=== PATIENT | female | born 1950 | race Caucasian/White ===

== ENCOUNTER 2017-01-22 16:27 | Emergency (ER) | payer OTHER ==
[2017-01-22 16:29] VITALS: BP 144/64; PULSE 62; RESP 20; TEMP 98; O2SAT 96
[2017-01-22 17:09] VITALS: PULSE 58; RESP 18; TEMP 98.9; O2SAT 97
[2017-01-22] MEDS ORDERED: PROC10TA PO (17:18)
[2017-01-22] MEDS ORDERED: LORA-373 PO (17:18)
[2017-01-22] MEDS ORDERED: BYST5TAB2 PO (17:18)
[2017-01-22] MEDS ORDERED: PRAV20TA2 PO (17:18)
[2017-01-22] MEDS ORDERED: MORP1SOL3 PO (17:18)
[2017-01-22] MEDS ORDERED: LEVO88TA2 PO (17:18)
[2017-01-22] MEDS ORDERED: SODIUM CHLOR 0.9% 1000 ML INJ 1,000 ML IV SCH (17:34)
[2017-01-22] MEDS ORDERED: ONDANSETRON HCL 4 MG/2 ML VIAL IVP ONE (17:45)
[2017-01-22] MEDS ORDERED: ALUMINUM/MAGNESIUM/SIMETH 30 ML CUP PO ONE (17:45)
[2017-01-22] MEDS ORDERED: LORazepam 2 MG/ML VIAL IV PUSH ONE (17:45)
[2017-01-22] MEDS ORDERED: LIDOCAINE VISCOUS 2% SOLN 15 ML UDC PO ONE (17:45)
--- NOTE | 2017-01-22 17:48 | PD ---
HPI Chief Complaint: GI Complaint Time Seen by Provider: 17:30 Travel History International Travel<30 days: No Contact w/Intl Traveler<30days: No Traveled to known affect area: No History of Present Illness HPI This is a 66-year-old female with history of esophageal adenocarcinoma who presents for evaluation. She reports that for the past 4 months she has had decreased appetite, inability to swallow solid foods, 40 pound weight loss. She primarily sticks to a liquid diet. She was found to have esophageal adenocarcinoma. She has been referred to radiation oncology, saw Dr. Sharma yesterday with the plan for PET scan scheduled this upcoming Wednesday and likely radiation afterwards. She presents today because she feels like she needs increased energy and hydration prior to undergoing radiation. She reports that because of the difficulty swallowing food she has been getting dehydrated over the past several months. She is also feeling quite anxious and is tearful during the examination secondary to her diagnosis and upcoming treatment. She endorses epigastric abdominal pain which is been going on for the duration of her symptoms. She denies any acutely new or worsening symptoms. She denies any fevers, chills, recent illness, diarrhea, off or congestion. She doesn't know his chronic nausea, vomiting, dysphagia. She has no other complaints at this time. PFSH Past Medical History Anxiety: Yes Depression: Yes Cancer: Yes High Cholesterol: Yes Hypertension: Yes Past Surgical History Genitourinary Surgery: Yes (BLADDER PROLAPSE REPAIR) Hysterectomy: Yes Other Surgery: Yes (INGUINAL HERNIA ) Social History Alcohol Use: No Tobacco Use: No Substance Use: No Allergies-Medications (Allergen,Severity, Reaction): Coded Allergies: Sulfa (Sulfonamide Antibiotics) (Verified Allergy, Severe, RASH, 01/22/17) ibuprofen (Verified Allergy, Severe, RASH, 01/22/17) penicillin G (Verified Allergy, Severe, RASH, 01/22/17) Reported Meds & Prescriptions Reported Meds & Active Scripts Active Reported Prochlorperazine Maleate 10 Mg Tab 10 Mg PO TID PRN Lorazepam 0.5 Mg Tab 0.5 Mg PO Q8H PRN Bystolic (Nebivolol) 5 Mg Tab 5 Mg PO DAILY Pravastatin 20 Mg Tab 20 Mg PO DAILY Levothyroxine (Levothyroxine Sodium) 88 Mcg Tab 88 Mcg PO DAILY Morphine Liq (Morphine Sulfate) 10 Mg/5 Ml Liq 5 Mg PO Q4H Review of Systems Except as stated in HPI: all other systems reviewed are Neg Physical Exam Narrative GENERAL: Pleasant well-developed well-nourished female in no acute distress. She is somewhat depressed and tearful on initial examination. SKIN: Warm and dry. HEAD: Atraumatic. Normocephalic. EYES: Pupils equal and round. No scleral icterus. No injection or drainage. ENT: No nasal bleeding or discharge. Mucous membranes pink and moist. NECK: Trachea midline. No JVD. CARDIOVASCULAR: Regular rate and rhythm. No murmur appreciated. RESPIRATORY: No accessory muscle use. Clear to auscultation. Breath sounds equal bilaterally. GASTROINTESTINAL: Abdomen soft, mild epigastric tenderness without guarding. MUSCULOSKELETAL: No obvious deformities. No clubbing. No cyanosis. No edema. NEUROLOGICAL: Awake and alert. No obvious cranial nerve deficits. Motor grossly within normal limits. Normal speech. PSYCHIATRIC: Appropriate mood and affect; insight and judgment normal. Data Data Last Documented VS Vital Signs Date Time Temp Pulse Resp B/P (MAP) Pulse Ox O2 Delivery O2 Flow Rate FiO2 01/22/17 17:09 98.9 58 18 97 Room Air Orders Orders Complete Blood Count With Diff (01/22/17 17:34) Comprehensive Metabolic Panel (01/22/17 17:34) Lipase (01/22/17 17:34) Iv Access Insert/Monitor (01/22/17 17:34) Ondansetron Inj (Zofran Inj) (01/22/17 17:45) Sodium Chlor 0.9% 1000 Ml Inj (Ns 1000 M (01/22/17 17:34) Electrocardiogram (01/22/17 17:34) Al-Mag Hy-Si 40-40-4 Mg/Ml Liq (Mag-Al P (01/22/17 17:45) Lidocaine 2% Viscous (Xylocaine 2% Visco (01/22/17 17:45) Lorazepam Inj (Ativan Inj) (01/22/17 17:45) Labs Laboratory Tests Test 01/22/17 17:30 White Blood Count 7.1 TH/MM3 Red Blood Count 4.85 MIL/MM3 Hemoglobin 12.2 GM/DL Hematocrit 36.9 % Mean Corpuscular Volume 76.0 FL Mean Corpuscular Hemoglobin 25.1 PG Mean Corpuscular Hemoglobin Concent 33.0 % Red Cell Distribution Width 16.8 % Platelet Count 237 TH/MM3 Mean Platelet Volume 9.6 FL Neutrophils (%) (Auto) 57.5 % Lymphocytes (%) (Auto) 28.9 % Monocytes (%) (Auto) 11.6 % Eosinophils (%) (Auto) 1.1 % Basophils (%) (Auto) 0.9 % Neutrophils # (Auto) 4.1 TH/MM3 Lymphocytes # (Auto) 2.1 TH/MM3 Monocytes # (Auto) 0.8 TH/MM3 Eosinophils # (Auto) 0.1 TH/MM3 Basophils # (Auto) 0.1 TH/MM3 CBC Comment DIFF FINAL Differential Comment Blood Urea Nitrogen 6 MG/DL Creatinine 0.79 MG/DL Random Glucose 90 MG/DL Total Protein 6.8 GM/DL Albumin 3.3 GM/DL Calcium Level 9.2 MG/DL Alkaline Phosphatase 80 U/L Aspartate Amino Transf (AST/SGOT) 26 U/L Alanine Aminotransferase (ALT/SGPT) 22 U/L Total Bilirubin 0.4 MG/DL Sodium Level 138 MEQ/L Potassium Level 4.2 MEQ/L Chloride Level 105 MEQ/L Carbon Dioxide Level 25.6 MEQ/L Anion Gap 7 MEQ/L Estimat Glomerular Filtration Rate 73 ML/MIN Lipase 175 U/L MDM Medical Decision Making Medical Screen Exam Complete: Yes Emergency Medical Condition: Yes Medical Record Reviewed: Yes Differential Diagnosis Adjustment reaction, esophageal adenocarcinoma, failure to thrive, dehydration, electrolyte abnormality Narrative Course 66-year-old female who has upcoming treatment for her recently diagnosed esophageal adenocarcinoma presents with several months of gradual weight loss, nausea and vomiting, inability to swallow solid foods, primarily sticking to liquid diet. She presents today because she feels that she needs additional hydration prior to her upcoming radiation treatment. She has no acute symptoms but she does appear quite anxious and tearful in regards to her upcoming treatment. Plans for basic lab work, she'll be given IV fluids, Zofran and Ativan. It appears that during her v appointment with Dr. Sharma with radiation therapy yesterday there was a discussion in regards to the possibility of requiring G-tube in the future for nutrition maintenance and this is something that she is encouraged to discuss with her oncologist further as she may benefit from this. The patient feels improved after the administration of IV fluids and Ativan here. Her lab work is unremarkable. She is stable for discharge. Diagnosis Primary Impression: Dysphagia Qualified Codes: R13.10 - Dysphagia, unspecified Additional Impressions: Malignant neoplasm of cardio-esophageal junction Anxiety Additional Instructions: Stay well-hydrated and well-nourished. Follow-up with your radiation oncologist , primary care physician. Return for any emergent medical conditions. Med/Other Pt SpecificInfo: No Change to Meds Disposition: 01 DISCHARGE HOME Condition: Stable Vince Lopez Jan 22, 2017 17:48
[2017-01-22 17:51] LABS: AUTOMATED NEUTROPHIL # 4.1 TH/MM3 (1.8-7.7); BASOPHIL # 0.1 TH/MM3 (0-0.2); BASOPHIL % 0.9 % (0.0-2.0); EOSINOPHIL # 0.1 TH/MM3 (0-0.4); EOSINOPHIL % 1.1 % (0.0-4.0); HEMATOCRIT 36.9 % (35.0-46.0); HEMO FLAGS DIFF FINAL; LYMPH % 28.9 % (9.0-44.0); LYMPHOCYTE # 2.1 TH/MM3 (1.0-4.8); MEAN CORPUSCULAR HEMOGLOBIN 25.1 PG (27.0-34.0); MONO % 11.6 % (0.0-8.0); NEUT % 57.5 % (16.0-70.0); PLATELET COUNT 237 TH/MM3 (150-450); RED BLOOD COUNT 4.85 MIL/MM3 (4.00-5.30); RED CELL DISTRIBUTION WIDTH 16.8 % (11.6-17.2); WHITE BLOOD COUNT 7.1 TH/MM3 (4.0-11.0)
[2017-01-22 18:12] LABS: ALKALINE PHOSPHATASE 80 U/L (45-117); ALT (GPT) 22 U/L (10-53); TOTAL BILIRUBIN ADULT 0.4 MG/DL (0.2-1.0)
[2017-01-22 18:16] LABS: ANION GAP 7 MEQ/L (5-15); AST (GOT) 26 U/L (15-37); BICARBONATE 25.6 MEQ/L (21.0-32.0); BLOOD UREA NITROGEN 6 MG/DL (7-18); CHLORIDE 105 MEQ/L (98-107); GLOMERULAR FILTRATION RATE 73 ML/MIN (>89); SODIUM (NA) 138 MEQ/L (136-145)
[2017-01-22 18:17] LABS: POTASSIUM 4.2 MEQ/L (3.5-5.1)
--- NOTE | 2017-01-22 20:52 | EKG ---
Date Performed: 01/22/2017 Time Performed: 18:03:33 PTAGE: 66 years EKG: SINUS BRADYCARDIA BORDERLINE ECG No prior electrocardiogram available for comparison. DOCTOR: Charli Matias Interpretating Date/Time 01/25/2017 07:09:41
== END 2017-01-22 19:49 | disposition home or self-care (01) ==
LOC: NEPC 16:27
DX: C16.0 Malignant neoplasm of cardia (principal); F41.9 Anxiety disorder, unspecified; I10 Essential (primary) hypertension
CPT/HCPCS: 80053; 83690; 85025; 93005; 96374; 96375; 99284; J2060; J2405; J7030

== ENCOUNTER 2017-02-10 10:03 | Observation (INO) | payer MEDICARE, OTHER ==
[2017-02-10] VITALS: BP 153/67; PULSE 61; RESP 20; TEMP 97.3; O2SAT 94
[~2017-02-10] VITALS: Ht 157.5 cm; Wt 78.1 kg
[~2017-02-10 10:03] MED LIST: BYST5TAB2 PO; LEVO88TA2 PO; LORA-373 PO; MORP1SOL3 PO; PRAV20TA2 PO; PROC10TA PO
[2017-02-10] MEDS ORDERED: BUPIVACAINE/EPINEPHRINE 0.25% 50 ML VIAL ONE (11:09)
[2017-02-10] MEDS ORDERED: HEPARIN SODIUM - IV 10,000 UNITS/10 ML VIAL ONE (11:09)
[2017-02-10] MEDS ORDERED: INSULIN HUMAN REGULAR 1,000 UNITS/10 ML VIAL SQ PRN (11:15)
[2017-02-10] MEDS ORDERED: VANCOMYCIN HCL 1000 MG ON-CALL/NS 250 ML IV SCH ×2 (11:15)
[2017-02-10] MEDS ORDERED: CHLORHEXIDINE GLUCONATE 2 % 1 PACK (2 CLOTHS) TOPICAL PRN ×2 (11:15→23:45)
[2017-02-10] MEDS ORDERED: POVIDONE IODINE 5% (ANTISEPSIS KIT) 4 APPLICATIONS EACH NARE PRN ×2 (11:15→23:45)
[2017-02-10] MEDS ORDERED: METOPROLOL TARTRATE 25 MG TAB PO PRN (11:15)
[2017-02-10] MEDS ORDERED: LACTATED RINGER'S 1000 ML IV PRN (11:15)
[2017-02-10] MEDS ORDERED: SODIUM CHLORID 0.9% 500 ML IV PRN ×2 (11:15→23:45)
[2017-02-10] MEDS ORDERED: VANCOMYCIN HCL 1000 MG VIAL ONE (11:19)
[2017-02-10] MEDS ORDERED: ACETAMINOPHEN 1000 MG/100 ML 100 ML IV ONE (11:53)
[2017-02-10] MEDS ORDERED: PHENYLEPH/NS 1000 MCG/10 ML SYR IV ONE (12:43)
[2017-02-10] MEDS ORDERED: ROCURONIUM INJ 50 MG/5 ML SYRINGE IV PUSH ONE (12:43)
[2017-02-10] MEDS ORDERED: DEXAMETHASONE SOD PHOS 4 MG/ML VIAL IV ONE (12:43)
[2017-02-10] MEDS ORDERED: NEOSTIGMINE 3 MG/3 ML SYR IV ONE (12:43)
[2017-02-10] MEDS ORDERED: PROPOFOL 200 MG/20 ML AMP IV ONE (12:43)
[2017-02-10] MEDS ORDERED: GLYCOPYRROLATE 1 MG/5 ML SYRINGE IV PUSH ONE (12:43)
[2017-02-10] MEDS ORDERED: SUCCINYLCHOLINE CHLORIDE 100 MG/5 ML SYRINGE IV PUSH ONE (12:43)
[2017-02-10] MEDS ORDERED: ONDANSETRON HCL 4 MG/2 ML VIAL IV PUSH ONE (12:43)
[2017-02-10] MEDS ORDERED: LIDOCAINE HCL 1% PF 5 ML AMPULE OTHER ONE (12:43)
[2017-02-10] MEDS ORDERED: HYDROmorphone HCL PF 1 MG/ML VIAL IV PRN (14:00)
[2017-02-10] MEDS ORDERED: diphenhydrAMINE HCL 50 MG/ML VIAL IV PRN (14:00)
[2017-02-10] MEDS ORDERED: SODIUM CHLORIDE 0.9% FLUSH 5 ML FLUSH IVF PRN (14:00)
[2017-02-10] MEDS ORDERED: PCA - TOTAL MG MORPHINE DELIVERED PER SHIFT SCH (14:00)
[2017-02-10] MEDS ORDERED: Post-op Orders (for Pharmacy) MISC XX ONE (14:00)
[2017-02-10] MEDS ORDERED: oxyCODONE/ACETAMINOPHEN 5 MG/325 MG TAB PO PRN ×2 (14:00)
[2017-02-10] MEDS ORDERED: MORPHINE SULFATE 4 MG/ML INJ IV PUSH PRN (14:00)
[2017-02-10] MEDS ORDERED: MORPHINE SULFATE 8 MG/ML INJ IV PUSH PRN (14:00)
[2017-02-10] MEDS ORDERED: DO NOT ADM ANY ANTICOAGULANT DRUGS PRN (14:00)
[2017-02-10] MEDS ORDERED: NALOXONE HCL 0.4 MG/ML AMP IV PRN (14:00)
[2017-02-10] MEDS ORDERED: *MEPERIDINE 25 MG INJ VIAL PERIprocedural Use ONLY ONE (14:10)
[2017-02-10] MEDS: D5-NS + KCL 20 MEQ INJ 1,000 ML IV SCH ×2 (14:30→21:29)
--- NOTE | 2017-02-10 14:57 | RADRPT ---
EXAM DATE/TIME: 02/10/2017 13:49 [facility] COMPARISON: No previous studies available for comparison. INDICATIONS : Central line placement. MEDICAL HISTORY : None. SURGICAL HISTORY : None. ENCOUNTER: Initial ACUITY: 1 day PAIN SCORE: 0/10 LOCATION: Bilateral chest FINDINGS: A left chest port is present with tip extending to the SVC. There is no evidence of pneumothorax othe r complication of placement. The lungs are focally clear. No effusion is present. Cardiac contours ar e satisfactory for technique and projection. CONCLUSION: Satisfactory left chest port appearance with no pneumothorax. Segundo Mae MD on February 10, 2017 at 14:35 Board Certified Radiologist. This report was verified electronically.
[2017-02-10] MEDS ORDERED: LACTATED RINGER'S 1000 ML INJ 1,000 ML IV SCH (15:00)
--- NOTE | 2017-02-10 15:01 | PD.CONS ---
[facility] By Dr. Valderrama general Surgery Reason for Consult Medical management Primary Care Physician Janneth Berrios M.D. Diagnoses: History of Present Illness Patient is a very pleasant 67-year-old female with past medical history of gastric cancer following with Dr. Nicholas as outpatient, hypothyroidism, HLD, HTN who presented to [facility] to surgery for port placement and abdominal surgery. The patient says she packs the port placed however abdominal surgery was postponed by Dr. valderrama. She says she is usually feeling nauseated and is vomiting every day however today she feels good. She has no nausea or vomiting. No abdominal pain. No diarrhea or constipation. Denies any fever or chills. No chest pain, shortness of breath. No urinary complaints. Review of Systems Except as stated in HPI: all other systems reviewed are Neg Past Family Social History Allergies: Coded Allergies: Sulfa (Sulfonamide Antibiotics) (Verified Allergy, Severe, RASH, 02/10/17) ibuprofen (Verified Allergy, Severe, RASH, 02/10/17) penicillin G (Verified Allergy, Severe, RASH, 02/10/17) Past Medical History Hypothyroidism, gastric CA, HTN, HLD Past Surgical History Left inguinal hernia repair Complete hysterectomy Urinary Bladder surgery Reported Medications Reported Meds & Active Scripts Active Reported Prochlorperazine Maleate 10 Mg Tab 10 Mg PO TID PRN Lorazepam 0.5 Mg Tab 0.5 Mg PO Q8H PRN Bystolic (Nebivolol) 5 Mg Tab 5 Mg PO DAILY Pravastatin 20 Mg Tab 20 Mg PO DAILY Levothyroxine (Levothyroxine Sodium) 88 Mcg Tab 88 Mcg PO DAILY Morphine Liq (Morphine Sulfate) 10 Mg/5 Ml Liq 5 Mg PO Q4H Family History Mother healthy at the age of 92 No family history of cancers Social History Denies alcohol use, illicit drug use or tobacco use. Physical Exam Vital Signs Vital Signs Date Time Temp Pulse Resp B/P (MAP) Pulse Ox O2 Delivery O2 Flow Rate FiO2 02/10/17 13:37 98.0 70 16 146/65 (92) 100 Nasal Cannula 2 02/10/17 10:51 97.9 60 20 130/60 (83) 98 Physical Exam GENERAL: This is a very pleasant 69 white female, well-nourished, well- developed patient, in no apparent distress. SKIN: S/p Right upper chests port placement dressing on c/d/i. No rashes, ecchymoses or lesions. Cool and dry. HEAD: Atraumatic. Normocephalic. No temporal or scalp tenderness. EYES: Pupils equal round and reactive. Extraocular motions intact. No scleral icterus. No injection or drainage. ENT: Nose without bleeding, purulent drainage or septal hematoma. Throat without erythema, tonsillar hypertrophy or exudate. Uvula midline. Airway patent. NECK: Trachea midline. No JVD or lymphadenopathy. Supple, nontender, no meningeal signs. CARDIOVASCULAR: S/p Right upper chests port placement dressing on c/d/i. Regular rate and rhythm without murmurs, gallops, or rubs. RESPIRATORY: Clear to auscultation. Breath sounds equal bilaterally. No wheezes , rales, or rhonchi. GASTROINTESTINAL: Abdomen soft, non-tender, nondistended. No hepato-splenomegaly , or palpable masses. No guarding. MUSCULOSKELETAL: Extremities without clubbing, cyanosis, or edema. No joint tenderness, effusion, or edema noted. No calf tenderness. Negative Homans sign bilaterally. NEUROLOGICAL: Awake and alert. Cranial nerves II through XII intact. Motor and sensory grossly within normal limits. Five out of 5 muscle strength in all muscle groups. Normal speech. Assessment and Plan Assessment and Plan Pleasant 67-year-old female with past medical history of gastric cancer, hypothyroidism, HTN, HLD: Gastric Ca Hypothyroidism S/P port placement by Dr Valderrama. Per patient she was also supposed to get gastric surgery today with Dr Valderrama however this was not done today Dressing c/d/i Restart home meds as appropriate Antiemetics as need. Laxatives as need. Pain meds per pain scale DVT ppx: Anticoagulation per surgeon Thank you for this consultation Discussed Condition With Patient, nursing Patricia Ramirez MD Feb 10, 2017 15:01
--- NOTE | 2017-02-10 16:26 | MP ---
cc: JAUN BALLARD M.D. DATE OF SURGERY: 02/10/2017 PREOPERATIVE DIAGNOSIS: Advanced gastric cancer. Need for IV chemotherapy. Need for enteric feeding. POSTOPERATIVE DIAGNOSIS: Advanced gastric cancer. Need for IV chemotherapy. Need for enteric feeding. Diffuse carcinomatosis. PROCEDURE PERFORMED: 1. Left subclavian [id number] with intraoperative fluoroscopy. 2. Diagnostic laparoscopy. 3. Biopsy of omental metastases. SURGEON: Jaun Ballard MD. BARRER AND TACKER: [place]. ANESTHESIA: General endotracheal anesthesia COMPLICATIONS: None. INDICATIONS FOR PROCEDURE: Ms. Caballero is a very pleasant 67 year-old female who unfortunately has advanced gastric cancer. Apparently there was a significant delay in her diagnosis due to some insurance problems. She was referred over by Dr. Nicholas to me yesterday for consideration of [id number]-[id number] placement to start chemotherapy this Wednesday. During the evaluation, the patient and her daughter told me she was having an extremely difficult time getting any oral intake. Her gastric cancer was nearly occluding her esophagus according to her daughter and she was having problems with liquids and saliva. I discussed the case with Dr. Nicholas as well as the patient's surgeon in [place] and recommended a jejunal feeding tube for enteric feeding. They both agreed. I explained to the patient we would place an Yetbnr-F-Codh and then a laparoscopic jejunostomy tube. I also explained to them that during the laparoscopy we can formally evaluate the intra-abdominal area to see if there is any evidence of metastasis. She did have a PET scan preoperatively that did not show any evidence of metastasis. INTRAOPERATIVE FINDINGS: The patient was found to have diffuse carcinomatosis with multiple white nodules within the omentum and along the peritoneum. This was most consistent with diffuse carcinomatosis. She also had some ascitic fluid down in the pelvis. I did not place a jejunostomy tube due to the diffuse carcinomatosis for fear of complication with the tube leaking. I discussed this with Dr. Nicholas intraoperatively and she agreed. DETAILS The patient was identified, brought the operating room, placed supine on the operating table. After adequate general endotracheal anesthesia was achieved the anterior neck and chest was prepped and draped in standard surgical fashion, 0.25% Marcaine injected in the skin and subcutaneous tissue and the left subclavian area. The left subclavian vein was then accessed with an 18 gauge needle without any difficulty. Guidewire was advanced and followed to the level of superior vena cava. Next the subcutaneous pocket was fashioned in the left anterior chest after anesthetizing the skin and subcutaneous tissue with 0.25% Marcaine. Next the introducer was followed over the guidewire using direct fluoroscopy to the superior vena cava. The guidewire was then removed. The catheter was then advanced to about 20 cm which put it at the junction of the superior vena cava and the right atrium. The catheter was then brought down to the subcutaneous pocket which was fashioned just inferior and medial to the puncture site. Catheter was attached to the port with a locking device. Port was tested and found to have excellent blood return, easy ability to flush. Port was placed in the subcutaneous pocket and secured with a 2-0 Prolene suture x2. Pocket was then copiously injected with additional local anesthetic and closed in two layers using a 4-0 Vicryl. Sterile dressings were applied. Attention was now directed to the abdominal cavity. The abdomen was reprepped and draped in standard surgical fashion. Gloves and gowns were all changed. Supraumbilical space anesthetized with 0.25% Marcaine. Supraumbilical incision was made. Dissection carried down to the subcutaneous tissue to the anterior rectus fascia. Anterior rectus fascia was incised vertically in the midline. A blunt hemostat was then used to gain access to the peritoneal cavity. Blunt balloon trocar was inserted and the abdomen was insufflated to 15 mmHg using CO2 gas. The 30 degree laparoscope was inserted. Immediately I noted diffuse carcinomatosis. There were multiple white nodules throughout the omentum and along the colon, as well as up and around the liver and on the peritoneal lining of the right upper quadrant. Multiple photographs were taken. I notified Dr. Nicholas, the patient's oncologist, and we agreed that the jejunostomy tube was not indicated due to the advanced carcinomatosis. We discussed the possibility of an endoscopic stent or possibly even a PEG as she was no longer a surgical candidate for a formal gastric resection. Dr. Nicholas recommended biopsy of the nodules. Therefore, a second 5 millimeter port was placed in the right upper quadrant under direct vision after injecting the skin and subcutaneous tissue with 0.25% Marcaine. Multiple omental biopsies were taken with a blunt 5 mm spoon of the white nodules. These were sent to pathology for analysis. At this point we terminated the procedure. Biopsy sites were inspected. There was no gross bleeding. All ports removed under direct vision, 5 millimeter supraumbilical port site was closed with 0 Vicryl in interrupted fashion. Skin was closed with 4-0 Vicryl. Port sites were closed with 4-0 Vicryl. Sterile dressings were applied. The patient was brought to recovery in stable condition. Chest x-ray will be obtained in the Recovery Room. Jaun MD ELE Ballard/JENNIE /1:52 PM /3:46 PM
[2017-02-10 16:30] VITALS: BP 166/71; PULSE 55; RESP 18; TEMP 97; O2SAT 98
--- NOTE | 2017-02-10 16:52 | PD.CONS ---
HPI History of Present Illness This is a 67 year old lady with gastric ca s/p attempted laparoscopic insertion J tube, insertion infuseaport. GI has been consulted for obstructing gastric/ esophageal cancer and consideration of esophageal stent vs PEG tube placement. She has lost 55 lbs in the last 5 months. THe last few months she has been having epigastric pain, bloating, nausea and vomiting daily. She regurgitates liquid after eating. Has been drinking ensure, not eating much. She had EGD with Dr Thurston 10/2016 and says that is when her gastric cancer was diagnosed. She admits alternating diarrhea and constipation. SHe last had colonoscopy 5 years ago and was normal per pt. (Mabel Melo) PFSH Past Medical History hypothyroid HTN Past Surgical History infuseaport placement attempted laparoscopic j tube insertion c section bladder sling hysterectomy hernia repair (Mabel Melo) Coded Allergies: Sulfa (Sulfonamide Antibiotics) (Verified Allergy, Severe, RASH, 02/10/17) ibuprofen (Verified Allergy, Severe, RASH, 02/10/17) penicillin G (Verified Allergy, Severe, RASH, 02/10/17) Family History hodgkins lymphoma leukemia colon ca Social History no ETOH, tobacco use or illicit drug use (Mabel Melo) Review of Systems Constitutional: COMPLAINS OF: Weight loss, DENIES: Fever Eyes: DENIES: Blurred vision Ears, nose, mouth, throat: DENIES: Hearing loss Respiratory: DENIES: Hemoptysis Cardiovascular: DENIES: Chest pain Gastrointestinal: COMPLAINS OF: Abdominal pain, Constipation, Diarrhea, Nausea , Vomiting, Difficulty Swallowing, Anorexia, DENIES: Black stools, Bloody stools , Hematemesis Genitourinary: DENIES: Hematuria Musculoskeletal: DENIES: Joint Swelling Integumentary: DENIES: Rash Hematologic/lymphatic: DENIES: Bruising Neurologic: DENIES: Abnormal gait Psychiatric: DENIES: Confusion (Mabel Melo) GI Exam Vitals I&O Vital Signs Date Time Temp Pulse Resp B/P (MAP) Pulse Ox O2 Delivery O2 Flow Rate FiO2 02/10/17 13:37 98.0 70 16 146/65 (92) 100 Nasal Cannula 2 02/10/17 10:51 97.9 60 20 130/60 (83) 98 I/O 02/09/17 02/09/17 02/09/17 02/10/17 02/10/17 02/10/17 06:59 14:59 22:59 06:59 14:59 22:59 Intake Total 700 ml Output Total 10 ml Balance 690 ml Other 700 ml Output Estimated Blood Loss 10 ml Imaging Last Impressions Chest X-Ray 02/10/17 0000 Signed Impressions: Service Date/Time: Friday, February 10, 2017 13:49 - CONCLUSION: Satisfactory left chest port appearance with no pneumothorax. Segundo Mae MD Physical Examination HEENT: PERRL; normocephalic; atraumatic; no jaundice. CHEST: CTA CARDIAC: RRR. ABDOMEN: Soft, nondistended, nontender; no hepatosplenomegaly; bowel sounds are present in all four quadrants. EXTREMITIES: No clubbing, cyanosis, or edema. SKIN: Normal; no rash; no jaundice. INSPECTOR SUBASSEMBLIES: No focal deficits; alert and oriented times three. (Mabel Melo) Assessment and Plan Plan ASSESSMENT - gastric/esophageal cancer, obstructing - pt with weight loss, n/v, epigastric pain. s/p [id number] placement, diagnostic lap, bx omental masses operative findings c/w carcinomatosis. follows with Dr Nicholas. PLAN - EGD with poss esophageal stent, poss PEG tube placement - obtain consent - NPO after midnight - IV levaquin if PEG - await omental biopsies - supportive care - further recs to follow This pt seen by myself and Dr Gomes and this note is written on her. (Mabel Melo) Physician Comments seen, examined agree with above (Mariana Gomes MD) Mabel Melo Feb 10, 2017 16:52 Mariana Gomes MD Feb 10, 2017 18:19
[2017-02-10 20:00] VITALS: BP 139/65; PULSE 60; RESP 16; TEMP 96.6; O2SAT 96
[2017-02-10] MEDS: SODIUM CHLORIDE 0.9% FLUSH 5 ML FLUSH IVF SCH (21:00)
[2017-02-11 04:00] VITALS: BP 152/72; PULSE 56; RESP 20; TEMP 97.3; O2SAT 94
[2017-02-11] MEDS: D5-NS + KCL 20 MEQ INJ 1,000 ML IV SCH ×3 (06:40→22:30)
[2017-02-11] MEDS ORDERED: MORPHINE 5 MG PO SCH (07:15)
[2017-02-11] MEDS: LEVOTHYROXINE SODIUM 88 MCG TAB PO SCH (07:24)
[2017-02-11] MEDS ORDERED: LORazepam 0.5 MG TAB PO PRN (07:30)
[2017-02-11 08:00] VITALS: BP 129/65; PULSE 60; RESP 17; TEMP 97.3; O2SAT 95
[2017-02-11] MEDS ORDERED: PROCHLORPERAZINE MALEATE 10 MG TAB PO PRN (08:00)
[2017-02-11] MEDS: SODIUM CHLORIDE 0.9% FLUSH 5 ML FLUSH IVF SCH ×2 (09:00→21:00)
[2017-02-11] MEDS ORDERED: PNEUMOCOCCAL POLYVALENT INJ 25 MCG/0.5 ML SYR IM ONE (09:00)
[2017-02-11] MEDS: PRAVASTATIN SOD 20 MG TAB PO SCH (09:00)
[2017-02-11] MEDS ORDERED: INFLUENZA VIRUS VACCINE (QUADRIVALENT) 0.5 ML SYR IM ONE (09:00)
[2017-02-11] MEDS: NEBIVOLOL 5 MG TAB PO SCH (09:17)
--- NOTE | 2017-02-11 11:43 | HHI.PR ---
Subjective Subjective Notes Resting in bed Going to EGD with possible stent placement this afternoon Objective Vitals/I&O Vital Signs Date Time Temp Pulse Resp B/P (MAP) Pulse Ox O2 Delivery O2 Flow Rate FiO2 02/11/17 08:00 97.3 60 17 129/65 (86) 95 02/10/17 16:00 Nasal Cannula 2 Cardiovascular: Regular Lungs: Clear Abdomen: Non-distended, Other (lap sites c/d/i; minimal drainage on umbilical site ) Extremities: No edema Narrative Exam RIGHT chest port---dressing with minimal drainage A/P Assessment and Plan 67 year old female with gastric cancer POD1 dx lap and biopsy; port placement -Going to EGD today for possible esophageal stent placement -NPO for procedure -Pain control -DC IVF after procedure -Possible home tomorrow; patient start chemotherapy tomorrow Britta Zheng Feb 11, 2017 11:43
--- NOTE | 2017-02-11 11:52 | HHI.PR ---
Subjective Remarks C/o nausea . Also has constipation and wants sup . No fever or chills. S/p egd with dilation. No vomiting, diarrhea or constipation. Objective Vitals Vital Signs Date Time Temp Pulse Resp B/P (MAP) Pulse Ox O2 Delivery O2 Flow Rate FiO2 02/11/17 08:00 97.3 60 17 129/65 (86) 95 02/11/17 04:00 97.3 56 20 152/72 (98) 94 02/11/17 02:15 20 02/10/17 20:00 96.6 60 16 139/65 (89) 96 02/10/17 16:30 97.0 55 18 166/71 (102) 98 02/10/17 16:00 54 16 159/77 (104) 100 Nasal Cannula 2 02/10/17 15:30 52 16 164/76 (105) 100 Nasal Cannula 2 02/10/17 15:00 52 16 156/67 (96) 100 Nasal Cannula 2 02/10/17 14:45 54 16 143/61 (88) 100 Nasal Cannula 2 02/10/17 14:30 56 16 146/70 (95) 100 Nasal Cannula 2 02/10/17 14:15 54 16 154/74 (100) 100 Nasal Cannula 2 02/10/17 14:00 54 16 148/65 (92) 100 Nasal Cannula 2 02/10/17 13:45 62 16 139/63 (88) 100 Nasal Cannula 2 02/10/17 13:37 98.0 70 16 146/65 (92) 100 Nasal Cannula 2 I/O 02/10/17 02/10/17 02/10/17 02/11/17 02/11/17 02/11/17 07:00 15:00 23:00 07:00 15:00 23:00 Intake Total 700 ml Output Total 10 ml 200 ml Balance 690 ml -200 ml Other 700 ml Output Urine Total 200 ml Estimated Blood Loss 10 ml Imaging Last Impressions Chest X-Ray 02/10/17 0000 Signed Impressions: Service Date/Time: Friday, February 10, 2017 13:49 - CONCLUSION: Satisfactory left chest port appearance with no pneumothorax. Segundo Mae MD Objective Remarks GENERAL: This is a very pleasant 69 white female, well-nourished, well- developed patient, in no apparent distress. SKIN: S/p Right upper chests port placement dressing on c/d/i. No rashes, ecchymoses or lesions. Cool and dry. CARDIOVASCULAR: S/p Right upper chest port placement dressing on c/d/i. Regular rate and rhythm without murmurs, gallops, or rubs. RESPIRATORY: Clear to auscultation. Breath sounds equal bilaterally. No wheezes , rales, or rhonchi. GASTROINTESTINAL: Abdomen soft, non-tender, nondistended. No hepato-splenomegaly , or palpable masses. No guarding. MUSCULOSKELETAL: Extremities without clubbing, cyanosis, or edema. No joint tenderness, effusion, or edema noted. No calf tenderness. Negative Homans sign bilaterally. NEUROLOGICAL: Awake and alert. Cranial nerves II through XII intact. Motor and sensory grossly within normal limits. Five out of 5 muscle strength in all muscle groups. Normal speech. Procedures By White gen surg on 02/10/17 1. Left subclavian Asiyid-S-Ivpf with intraoperative fluoroscopy. 2. Diagnostic laparoscopy. 3. Biopsy of omental metastases. EGD with dilation by Dr Gomes 02/11/17 A/P Assessment and Plan Pleasant 67-year-old female with past medical history of gastric cancer, hypothyroidism, HTN, HLD: Gastric Ca Hypothyroidism Dysphagia s/p EGD with dilation 02/11/[address] Gomes Constipation S/p surgery By Dr White gen surg on 02/10/17 1. Left subclavian Lnxgeo-D-Tsvv with intraoperative fluoroscopy. 2. Diagnostic laparoscopy. 3. Biopsy of omental metastases. S/P EGD with dilation by Dr Gomes 02/11/17 Dressing c/d/i Restart home meds as appropriate Antiemetics as need. Laxatives as need. Pain meds per pain scale laxatives. stool softeners as need DVT ppx: Anticoagulation per surgeon Thank you for this consultation Discussed Condition With Patient, nursing Patricia Ramirez MD Feb 11, 2017 11:52
[2017-02-11 12:00] VITALS: BP 153/66; PULSE 58; RESP 16; TEMP 97.6; O2SAT 97
[2017-02-11 13:14] VITALS: O2SAT 95
--- NOTE | 2017-02-11 15:50 | GIPROC ---
[facility] [address] [facility]. [facility], [id number] EGD WITH DILATION PROCEDURE REPORT EXAM DATE: 02/11/2017 PATIENT NAME: Clotilde Caballero MR#: [id number] BIRTHDATE: 1950 ATTENDING: Mariana Gomes MD ORDER #: [id number] HOSPITAL CLINIC ASSISTANT: Indira Ravi RN STATUS: inpatient INDICATIONS: The patient is a 67 yr old female here for an EGD with dilation due to dysphagia PROCEDURE PERFORMED: EGD w/ biopsy EGD w/ dilation of esophagus via guidewire MEDICATIONS: None and Per Anesthesia. TOPICAL ANESTHETIC: none CONSENT: The patient understands the risks and benefits of the procedure and understands that these risks include, but are not limited to: sedation, allergic reaction, infection, perforation and/or bleeding. Alternative means of evaluation and treatment include, among others: physical exam, x-rays, and/or surgical intervention. The patient elects to proceed with this endoscopic procedure. medical equipment was checked for proper function. Hand hygiene and appropriate measures for infection prevention was taken. After the risks, benefits and alternatives of the procedure were thoroughly explained, Informed consent was verified, confirmed and timeout was successfully executed by the treatment team. The patient was anesthetized with topical anesthesia and the endoscope was introduced through the mouth and advanced to the second portion of the duodenum. The instrument was slowly withdrawn as the mucosa was fully examined. Mass in stomach involving fundus and most of the body esophagus -mild esophagitis-some narrowing at ge junction due to gastric mass, I was able to pass scope in stomach- based on findings cannot place stent at thsi point, also no window to place gastrostomy tube now. Dilation was performed at gastroesophageal junction. DILATOR: SIZE(S): RESISTANCE: HEME: APPEARANCE: Dilator: Savary over guidewire Size(s): 12, 12.8 COMMENT: Retroflexion was not performed ADVERSE EVENTS: There were no complications. IMPRESSIONS: 1. Mass in stomach involving fundus and most of the body esophagus -mild esophagitis-some narrowing at ge junction due to gastric mass, I was able to pass scope in stomach- based on findings cannot place stent at thsi point, also no window to place gastrostomy tube now 2. Retroflexion was not performed RECOMMENDATIONS: Full liquid diet proceed with chemo/radiation ppi if needed can palce a Doubhoff tube /TPN we will reevalute after chemo/radiation consider IR consult for possible GTube-doubt any window will be found REPEAT EXAM: Return as needed for EGD Mariana Gomes MD eSigned: Mariana Gomes MD 02/11/2017 3:49 PM cc: PATIENT NAME: Clotilde Caballero MR#: [id number]
[2017-02-11 16:30] VITALS: BP 174/91; PULSE 59; RESP 19; TEMP 97.1; O2SAT 97
[2017-02-11] MEDS: PANTOPRAZOLE SODIUM 40 MG VIAL IV PUSH SCH (17:16)
[2017-02-11] MEDS ORDERED: BISACODYL 10 MG SUPP RECTAL ONE (17:45)
[2017-02-11] MEDS ORDERED: PROPOFOL 200 MG/20 ML AMP ONE (18:49)
[2017-02-11 20:00] VITALS: BP 151/76; PULSE 58; RESP 20; TEMP 97.4; O2SAT 96
[2017-02-12] VITALS: BP 154/79; PULSE 59; RESP 18; TEMP 97.4; O2SAT 95
[2017-02-12] MEDS: ONDANSETRON HCL 4 MG/2 ML VIAL IV PRN ×2 (03:08→08:29)
[2017-02-12] MEDS: PANTOPRAZOLE SODIUM 40 MG VIAL IV PUSH SCH (03:08)
[2017-02-12] MEDS: D5-NS + KCL 20 MEQ INJ 1,000 ML IV SCH (05:32)
[2017-02-12] MEDS: LEVOTHYROXINE SODIUM 88 MCG TAB PO SCH (05:32)
[2017-02-12 08:10] VITALS: BP 143/80; PULSE 62; RESP 15; TEMP 98.1; O2SAT 95
[2017-02-12] MEDS: SODIUM CHLORIDE 0.9% FLUSH 5 ML FLUSH IVF SCH (08:30)
[2017-02-12] MEDS: NEBIVOLOL 5 MG TAB PO SCH (08:30)
[2017-02-12] MEDS: BISACODYL 10 MG SUPP RECTAL SCH ×2 (08:31→08:34)
[2017-02-12] MEDS: PRAVASTATIN SOD 20 MG TAB PO SCH (08:31)
--- NOTE | 2017-02-12 09:25 | HHI.GIFU ---
Subjective Remarks Resting in bed. Did not try to eat yesterday, because she was having nausea after the procedure. She feels better today. Hoping to be discharged home soon today, as she has an appointment for chemotherapy. (Nely Nolasco) Objective Vitals I&O Vital Signs Date Time Temp Pulse Resp B/P (MAP) Pulse Ox O2 Delivery O2 Flow Rate FiO2 02/12/17 08:10 98.1 62 15 143/80 (101) 95 02/12/17 00:00 97.4 59 18 154/79 (104) 95 02/11/17 20:00 97.4 58 20 151/76 (101) 96 02/11/17 16:30 97.1 59 19 174/91 (118) 97 02/11/17 15:40 18 18 160/80 (106) 99 Room Air 02/11/17 13:14 95 Nasal Cannula 2.00 02/11/17 12:00 97.6 58 16 153/66 (95) 97 I/O 02/11/17 02/11/17 02/11/17 02/12/17 02/12/17 02/12/17 07:00 15:00 23:00 07:00 15:00 23:00 Intake Total 1111 ml 240 ml Output Total 850 ml Balance 261 ml 240 ml Intake Oral 240 ml 240 ml IV Total 271 ml Other 600 ml Output Urine Total 850 ml # Voids 3 # Bowel Movements 1 0 Imaging Last Impressions Chest X-Ray 02/10/17 0000 Signed Impressions: Service Date/Time: Friday, February 10, 2017 13:49 - CONCLUSION: Satisfactory left chest port appearance with no pneumothorax. Segundo Mae MD Physical Exam HEENT: Normocephalic; atraumatic; no jaundice. CHEST: Resp even/unlabored, shallow. CARDIAC: RRR ABDOMEN: Soft, nondistended, nontender; no hepatosplenomegaly; bowel sounds are present in all four quadrants. EXTREMITIES: No clubbing, cyanosis, or edema. SKIN: Normal; no rash; no jaundice. [employer]: No focal deficits; alert and oriented times three. (Nely Nolasco) Assessment and Plan Plan ASSESSMENT: - Dysphagia, weight loss, nausea/vomiting. S/P EGD with dilatation (02/11/17)--- -> Mass in stomach involving fundus and most of the body esophagus mild esophagitis-some narrowing at ge junction due to gastric mass, I was able to pass scope in stomach- based on findings cannot place stent at this point, also no window to place gastrostomy tube now. Dilation was performed at gastroesophageal junction. Size(s): 12, 12.8 - Gastric/esophageal cancer, obstructing. S/P Left subclavian sqdriu-h-yvuy, diagnostic laparoscopy, biopsy of omental metastases (02/10/17). Plan is to be discharged today to start chemotherapy. - Nausea/Vomiting. improved. PLAN - Full liquids - Okay to proceed with chemotherapy - If needed, can place Dobhoff/TPN - We will reevalute after chemo/radiation - Could consider IR consult for possible GTube-doubt any window will be found - Pt seen and examined by Dr. Gomes and myself and this note is written on his behalf (Nely Nolasco) Nely Nolasco Feb 12, 2017 09:25 Mariana Gomes MD Feb 12, 2017 15:59
--- NOTE | 2017-02-12 11:42 | HHI.PR ---
Subjective Remarks Plan for chemo today. Able to eat. No events overnight. Objective Vitals Vital Signs Date Time Temp Pulse Resp B/P (MAP) Pulse Ox O2 Delivery O2 Flow Rate FiO2 02/12/17 08:10 98.1 62 15 143/80 (101) 95 02/12/17 00:00 97.4 59 18 154/79 (104) 95 02/11/17 20:00 97.4 58 20 151/76 (101) 96 02/11/17 16:30 97.1 59 19 174/91 (118) 97 02/11/17 15:40 18 18 160/80 (106) 99 Room Air 02/11/17 13:14 95 Nasal Cannula 2.00 02/11/17 12:00 97.6 58 16 153/66 (95) 97 I/O 02/11/17 02/11/17 02/11/17 02/12/17 02/12/17 02/12/17 07:00 15:00 23:00 07:00 15:00 23:00 Intake Total 1111 ml 240 ml Output Total 850 ml Balance 261 ml 240 ml Intake Oral 240 ml 240 ml IV Total 271 ml Other 600 ml Output Urine Total 850 ml # Voids 3 # Bowel Movements 1 0 Objective Remarks GENERAL: This is a very pleasant 69 white female, well-nourished, well- developed patient, in no apparent distress. SKIN: S/p Right upper chests port placement dressing on c/d/i. No rashes, ecchymoses or lesions. Cool and dry. CARDIOVASCULAR: S/p Right upper chest port placement dressing on c/d/i. Regular rate and rhythm without murmurs, gallops, or rubs. RESPIRATORY: Clear to auscultation. Breath sounds equal bilaterally. No wheezes , rales, or rhonchi. GASTROINTESTINAL: Abdomen soft, non-tender, nondistended. No hepato-splenomegaly , or palpable masses. No guarding. MUSCULOSKELETAL: Extremities without clubbing, cyanosis, or edema. No joint tenderness, effusion, or edema noted. No calf tenderness. Negative Homans sign bilaterally. NEUROLOGICAL: Awake and alert. Cranial nerves II through XII intact. Motor and sensory grossly within normal limits. Five out of 5 muscle strength in all muscle groups. Normal speech. Procedures By Dr Valderrama gen surg on 02/10/17 1. Left subclavian Nruicl-L-Gavp with intraoperative fluoroscopy. 2. Diagnostic laparoscopy. 3. Biopsy of omental metastases. EGD with dilation by Dr Gomes 02/11/17 A/P Assessment and Plan Pleasant 67-year-old female with past medical history of gastric cancer, hypothyroidism, HTN, HLD: Gastric Ca Hypothyroidism Dysphagia s/p EGD with dilation 02/11/[address] Gomes Constipation S/p surgery By Dr Valderrama gen surg on 02/10/17 1. Left subclavian Hcwgir-K-Cugg with intraoperative fluoroscopy. 2. Diagnostic laparoscopy. 3. Biopsy of omental metastases. S/P EGD with dilation by Dr Gomes 02/11/17. Stent can not be performed. Dressing c/d/i Restart home meds as appropriate Antiemetics as need. Laxatives as need. Pain meds per pain scale laxatives. stool softeners as need DVT ppx: Anticoagulation per surgeon Thank you for this consultation Discussed Condition With Patient, nursing Patient sppears stable can be DC Patricia Ramirez MD Feb 12, 2017 11:42
== END 2017-02-12 11:45 | disposition home or self-care (01) ==
LOC: HSDI 10:03 → INTOOBSV 10:03 → EDSTATUS 12:00 → N07A 16:38
PROVIDERS: ADMIT Surgery Trauma Surgery; ATTEND Surgery Trauma Surgery
DX: C16.9 Malignant neoplasm of stomach, unspecified (principal); C15.9 Malignant neoplasm of esophagus, unspecified; C78.6 Secondary malignant neoplasm of retroperitoneum and peritoneum; R13.10 Dysphagia, unspecified; K20.9 Esophagitis, unspecified; E03.9 Hypothyroidism, unspecified; I10 Essential (primary) hypertension; E78.5 Hyperlipidemia, unspecified; K59.00 Constipation, unspecified
CPT/HCPCS: 00532; 00740; 36561; 43248; 49321; 71010; 76000; 88305; 94150; 96374; 96375; C1769; C1788; C9113; G0378; J0131; J0330; J1100; J1644; J2175; J2270; J2370; J2405; J2710; J3010; J3370; J3480; J7050; J7120

== ENCOUNTER 2017-03-11 13:55 | Day surgery (SDC) | payer OTHER ==
[~2017-03-11 13:55] MED LIST changes: -LORA-373 PO; +LORA0.5T PO
[2017-03-11 14:11] VITALS: BP 127/87; PULSE 81; RESP 20; TEMP 98.4; O2SAT 98
[2017-03-11] MEDS ORDERED: HYDR1ELX PO (14:40)
[2017-03-11] MEDS ORDERED: ONDANSETRON HCL 4 MG/2 ML VIAL ONE (15:10)
[2017-03-11] MEDS ORDERED: IOHEXOL 350 MG/ML 50 ML BTL (for RAD DIAG) IVCONTRAST ONE (15:32)
--- NOTE | 2017-03-11 16:17 | RADRPT ---
EXAM DATE/TIME: 03/11/2017 15:29 [facility] COMPARISON: No previous studies available for comparison. INDICATIONS : Patient presents with gastric cancer and non working port in need of patency injection. MEDICAL HISTORY : Anxiety Hypertension Hypothyroidism GI disorders, RA Esophageal/gastric cancer 10/22/16 SURGICAL HISTORY : Bladder Sling Colonoscopy Hysterectomy Left sided inguinal hernia ENCOUNTER: Initial ACUITY: 1 month PAIN SCORE: 5/10 LOCATION: Left abdomenstomach FLUORO TIME: 0.1 minutes IMAGE SERIES: 1 ACCESS SITE: Left Subclavian vein CONTRAST: 5 cc Omnipaque (iohexol) 350 PROCEDURE : 1. Access of Gvtgse-l-vmfy. 2. Port patency injection. The risks, benefits and alternatives to the procedure were explained and verbal and written consent w as obtained. The patient was placed supine. The port was prepped in sterile fashion. Full sterile t echnique was used, including cap, mask, sterile gloves and gown, and a large sterile sheet. Hand hyg iene and 2% chlorhexidine prep was utilized per protocol for cutaneous antisepsis with appropriate dr y time for site. The previously placed port was accessed and positive contrast was injected for evaluation. Injection demonstrates the Hujfmt-j-Pahk to be against the sidewall of the superior vena cava. The catheter is in the expected position. Aspiration not be possible. CONCLUSION: 1. Intravascular Bynuaj-x-Ohte against the sidewall as above Smooth Liang MD on March 11, 2017 at 16:13 Board Certified Radiologist. This report was verified electronically.
--- NOTE | 2017-03-11 16:17 | RADRPT ---
EXAM DATE/TIME: 03/11/2017 15:29 [facility] COMPARISON: No previous studies available for comparison. INDICATIONS : Patient presents with gastric cancer and non working port in need of patency injection. MEDICAL HISTORY : Anxiety Hypertension Hypothyroidism GI disorders, RA Esophageal/gastric cancer 10/22/16 SURGICAL HISTORY : Bladder Sling Colonoscopy Hysterectomy Left sided inguinal hernia ENCOUNTER: Initial ACUITY: 1 month PAIN SCORE: 5/10 LOCATION: Left abdomenstomach FLUORO TIME: 0.1 minutes IMAGE SERIES: 1 ACCESS SITE: Left Subclavian vein CONTRAST: 5 cc Omnipaque (iohexol) 350 PROCEDURE : 1. Access of Ksisqe-v-vzqc. 2. Port patency injection. The risks, benefits and alternatives to the procedure were explained and verbal and written consent w as obtained. The patient was placed supine. The port was prepped in sterile fashion. Full sterile t echnique was used, including cap, mask, sterile gloves and gown, and a large sterile sheet. Hand hyg iene and 2% chlorhexidine prep was utilized per protocol for cutaneous antisepsis with appropriate dr y time for site. The previously placed port was accessed and positive contrast was injected for evaluation. Injection demonstrates the Zmwhor-c-Npbq to be against the sidewall of the superior vena cava. The catheter is in the expected position. Aspiration not be possible. CONCLUSION: 1. Intravascular Puzhbf-z-Vjzc against the sidewall as above Smooth Liang MD on March 11, 2017 at 16:13 Board Certified Radiologist. This report was verified electronically.
--- NOTE | 2017-03-11 16:17 | RADRPT ---
EXAM DATE/TIME: 03/11/2017 15:29 [facility] COMPARISON: No previous studies available for comparison. INDICATIONS : Patient presents with gastric cancer and non working port in need of patency injection. MEDICAL HISTORY : Anxiety Hypertension Hypothyroidism GI disorders, RA Esophageal/gastric cancer 10/22/16 SURGICAL HISTORY : Bladder Sling Colonoscopy Hysterectomy Left sided inguinal hernia ENCOUNTER: Initial ACUITY: 1 month PAIN SCORE: 5/10 LOCATION: Left abdomenstomach FLUORO TIME: 0.1 minutes IMAGE SERIES: 1 ACCESS SITE: Left Subclavian vein CONTRAST: 5 cc Omnipaque (iohexol) 350 PROCEDURE : 1. Access of Vwuwxv-t-aywf. 2. Port patency injection. The risks, benefits and alternatives to the procedure were explained and verbal and written consent w as obtained. The patient was placed supine. The port was prepped in sterile fashion. Full sterile t echnique was used, including cap, mask, sterile gloves and gown, and a large sterile sheet. Hand hyg iene and 2% chlorhexidine prep was utilized per protocol for cutaneous antisepsis with appropriate dr y time for site. The previously placed port was accessed and positive contrast was injected for evaluation. Injection demonstrates the Jmtblr-q-Fjlw to be against the sidewall of the superior vena cava. The catheter is in the expected position. Aspiration not be possible. CONCLUSION: 1. Intravascular Gzqqea-c-Focg against the sidewall as above Smooth Liang MD on March 11, 2017 at 16:13 Board Certified Radiologist. This report was verified electronically.
== END 2017-03-11 16:00 | disposition home or self-care (01) ==
LOC: HROP 13:55 → HRIP 13:58 → HROP 16:00
PROVIDERS: ATTEND Internal Medicine Hematology & Oncology
DX: Z45.2 Encounter for adjustment and management of vascular access device (principal); C16.9 Malignant neoplasm of stomach, unspecified; I10 Essential (primary) hypertension; E03.9 Hypothyroidism, unspecified; F41.9 Anxiety disorder, unspecified
CPT/HCPCS: 36598; J1642; J2405; Q9967